=== PATIENT | female | born 1970 | race Caucasian/White ===

== ENCOUNTER 2019-07-22 08:00 | Outpatient (CLI) | payer OTHER | END 2019-07-22 23:59 | disposition home or self-care (01) | LOC: LAB.R 08:00 | PROVIDERS: ATTEND Family Medicine | DX: B34.9 Viral infection, unspecified (principal) | CPT/HCPCS: 81599; 87045; 87046; 87329; 87493 ==

== ENCOUNTER 2020-09-06 18:56 | Outpatient (CLI) | payer OTHER | END 2020-09-06 18:57 | disposition critical access hospital (66) | LOC: EMS 18:56 | DX: R60.0 Localized edema (principal); T63.441A Toxic effect of venom of bees, accidental (unintentional), initial encounter; Y92.008 Other place in unspecified non-institutional (private) residence as the place of occurrence of the external cause | CPT/HCPCS: A0425; A0427 ==

== ENCOUNTER 2020-09-06 19:28 | Emergency (ER) | payer OTHER ==
[2020-09-06 19:38] VITALS: BP 139/86
[2020-09-06] MEDS ORDERED: ONDANSETRON ODT 4 MG TABLET TL STA (19:38)
[2020-09-06] MEDS ORDERED: DEXAMETHASONE 10 MG/ML VIAL IM STA (19:38)
--- NOTE | 2020-09-06 19:40 | ED Physician Documentation ---
History of Present Illness - Stated complaint Stated Complaint: ALLERGIC REACTION - History obtained from History obtained from: Patient - Additonal information Additional information: PT comes to the ED via EMS for CC of allergic reaction to bee sting. Pt states she stepped on the bee about 2 hours ago, but didn't begin to notice tongue/throat swelling until almost an hour later. She called EMS, who gave her epi 0.3 mg IM. Pt states she is feeling a lot better now. She never did have difficulty breathing or rash, but states the sx are similar to anaphylactic reactions she has had to peanuts before. Her epi-pen is , she states. Pt took Benadryl 50 mg. No steroids en-route. She is moderately nauseated. No other complaints at this time. Review of Systems Ten Systems: 10 systems reviewed and negative Constitutional: reports: Reviewed and negative Eyes: reports: Reviewed and negative Ears: reports: Reviewed and negative Nose: reports: Reviewed and negative Throat: reports: Other (swelling/itching) Cardiac: reports: Reviewed and negative Respiratory: reports: Reviewed and negative. denies: Dyspnea GI: reports: Nausea, Vomiting : reports: Reviewed and negative Skin: reports: Bite / sting. denies: Rash Musculoskeletal: reports: Reviewed and negative Neurologic: reports: Reviewed and negative Psychiatric: reports: Reviewed and negative Endocrine: reports: Reviewed and negative Immunocompromised: reports: Reviewed and negative PD PAST MEDICAL HISTORY - Present Medications Home Medications: Ambulatory Orders Medication Instructions Recorded Confirmed EPINEPHrine [Epinephrine] 0.3 mg IJ ONCE PRN #1 syr 09/06/20 predniSONE [Deltasone] 60 mg PO DAILY 3 Days #9 tablet 09/06/20 PD ED PE NORMAL - Vitals Vital signs reviewed: Yes - General General: Alert and oriented X 3, No acute distress, Well developed/nourished - HEENT HEENT: Atraumatic, PERRL, EOMI, Moist mucous membranes, Other (No appreciable swelling of oropharyngeal structures) - Neck Neck: Supple, no meningeal sign, Other (no stridor) - Cardiac Cardiac: RRR, No murmur, Strong equal pulses - Respiratory Respiratory: No respiratory distress, Clear bilaterally - Abdomen Abdomen: Soft, Non tender, Non distended - Derm Derm: Normal color, Warm and dry, No rash - Extremities Extremities: No deformity - Neuro Neuro: Alert and oriented X 3 - Psych Psych: Normal mood, Normal affect Results - Vitals Vitals: Vital Signs - 24 hr 09/06/20 19:31 Temperature 36.9 C Heart Rate 116 H Respiratory 20 Rate Blood Pressure 139/86 H O2 Saturation 97 Oxygen O2 Source Room air PD MEDICAL DECISION MAKING - ED course Complexity details: considered differential, d/w patient ED course: Pt was stable and doing much better by the time of arrival in the ED. She was given ODT Zofran and a dose of Decadron in the ED, and had no further incident. I have refilled her Epi-pen. We have discussed the usual indications for return. Departure - Departure Disposition: Home, Self Care Condition: Stable Instructions: ED Bite Sting Insect Gen Allergic React, ED Anaphylaxis General Prescriptions: predniSONE [Deltasone] 60 mg PO DAILY 3 Days #9 tablet EPINEPHrine [Epinephrine] 0.3 mg IJ ONCE PRN #1 syr PRN Reason: Anaphylaxis Comments: Please take the prednisone as long as you are experiencing symptoms. You may also add over the counter Benadryl, 25-50mg every 6 hours. If you feel that your mouth/throat are swelling again, please use your epi-pen and return to the emergency department. Discharge Date/Time: 09/06/20 19:57
== END 2020-09-06 19:57 | disposition home or self-care (01) ==
LOC: ED 19:28
DX: T63.441A Toxic effect of venom of bees, accidental (unintentional), initial encounter (principal); R22.0 Localized swelling, mass and lump, head
CPT/HCPCS: 96372; 99283; 99284; Q0162